=== PATIENT | male | born 1950 | race Two or more races ===

== ENCOUNTER 2025-04-28 07:28 | Emergency (ER) | payer OTHER ==
[~2025-04-28] VITALS: Ht 182.9 cm; Wt 86.6 kg
[2025-04-28] MEDS ORDERED: SYNTHROID75 MCG PO (08:28)
[2025-04-28] MEDS ORDERED: TOPROL XL100 M1 PO (08:29)
[2025-04-28] MEDS ORDERED: LIPITOR20 MG PO (08:29)
[2025-04-28] MEDS ORDERED: PLAVIX75 MG PO (08:30)
[2025-04-28] MEDS ORDERED: VASOTEC5 MG PO (08:30)
[2025-04-28] MEDS ORDERED: 0.9 % SODIUM CHLORIDE 1,000 ML IV ONE (09:15)
[2025-04-28 09:54] LABS: URINE APPEARANCE Cloudy; URINE BILIRRUBIN Small (NEGATIVE); URINE BLOOD Large; URINE COLOR Red; URINE GLUCOSE Negative (NEGATIVE); URINE KETONE Negative (NEGATIVE); URINE LEUKOCYTE Small; URINE NITRATE Negative; URINE UROBILINOGEN 0.2 E.U./dl
[2025-04-28 09:55] LABS: URINE BACTERIA 43.1 uL (0.0-1933); URINE EPITHELIAL CELLS 20.1 uL (0.0-38.8); URINE RBC 2026.7 uL (0.0-20.8); URINE WBC 45.9 uL (0.0-23.2)
[2025-04-28 10:00] LABS: BASO % 0.8 % (0.1-1.2); EOS # 0.10 (0.04-0.54); EOS % 1.3 % (0.7-7.0); LYMPH # 1.38 (1.18-3.74); LYMPH % 17.6 % (19.3-53.1); MEAN PLATELET VOLUME 9.80 fl (9.4-12.4); MONO # 0.38 (0.24-0.82); MONO % 4.8 % (4.7-12.5); NEUT # 5.88 (1.56-6.13); NEUT % 75.0 % (34.0-71.1); RED CELL DISTRIBUTION WIDTH 12.6 % (11.6-14.4)
[2025-04-28 10:07] LABS: URINE CAST 0.00 uL (0.0-1.40); URINE CRYSTALS MODERATE /HPF; URINE PROTEIN 300 (NEGATIVE)
[2025-04-28 10:27] LABS: INR 1.05
[2025-04-28 10:48] LABS: ALT/SGPT 33.0 U/L (12-78); AST/SGOT 20.0 U/L (15-37); BILIRUBIN TOTAL 0.51 mg/dL (0.3-1.2); BUN CREA RATIO 13.0 (7.0-25.0); CREATININE SERUM 1.36 mg/dL (0.70-1.30); GFR 51.36; GLOBULINA 4.0 G/DL (2.4-3.5); GLUCOSE FASTING 109.0 mg/dL (65-100); OSMOLALITY SERUM 284.0 MOSM/KG (275-295)
[2025-04-28 11:01] LABS: PROSTATIC SPECIFIC ANTIGEN 4.07 NG/ML (0.010-4.00)
== END 2025-04-28 14:43 | disposition home or self-care (01) ==
LOC: ER 07:29
PROVIDERS: General Practice
DX: R31.9 Hematuria, unspecified (principal); E03.8 Other specified hypothyroidism; I10 Essential (primary) hypertension
CPT/HCPCS: 36415; 74177; Q9965